=== PATIENT | female | born 1995 | race African-American/Black ===

== ENCOUNTER 2023-01-13 03:16 | Emergency (ER) | payer OTHER ==
[~2023-01-13] VITALS: Ht 167.6 cm; Wt 70.0 kg
[2023-01-13 03:34] VITALS: O2SAT 98
[2023-01-13] MEDS ORDERED: HYDROCODONE/ACETAMINOPHEN 5/325MG TABLET PO ONE (04:45)
[2023-01-13 05:30] VITALS: BP 106/67; PULSE 81; RESP 12; TEMP 98.4
[2023-01-13] MEDS ORDERED: TOPUD MT (05:49)
[2023-01-13] MEDS ORDERED: IBUP-1523 MT (05:49)
== END 2023-01-13 05:55 | disposition home or self-care (01) ==
LOC: ER 03:16
DX: M25.572 Pain in left ankle and joints of left foot (principal)
CPT/HCPCS: 73600; 99283